=== PATIENT | female | born 1965 | race Two or more races ===

== ENCOUNTER 2019-08-22 14:25 | Emergency (ER) | payer SELFPAY ==
[~2019-08-22] VITALS: Ht 149.9 cm; Wt 68.0 kg
[2019-08-22 14:25] VITALS: BP 121/81
[2019-08-22] MEDS ORDERED: TYLENOL EXTRA500 MG ORAL (15:38)
--- NOTE | 2019-08-22 15:38 | Emergency Room Report ---
History of Present Illness General Chief Complaint: Sore Throat Source: Patient Present Illness HPI 53-year-old female presents to the emergency department complaining of 8 out of 10 severity sore throat x1 week in addition to having contact with another person who had contact with a known positive COVID-19 contact. Patient denies fevers or chills. She denies significant past medical history. She denies smoking history. Patient denies dyspnea, shortness of breath, mucus production , bluish discoloration of the lips. Patient denies chest pain or palpitations. She denies pain with swallowing. Patient denies rhinorrhea or nasal congestion. She denies cough. Patient has no other aggravating or relieving factors at this time. Patient states she has not taken any medications for her symptoms. She states that she did not receive this years flu vaccine. Pt. is inquiring regarding COVID-19 testing. COVID-19 risk:Contact w/high r: No COVID-19 risk:Travel to affect: No Has patient experienced ta: No Allergies: Coded Allergies: No Known Allergies (Unverified , 08/22/19) Patient History Past Medical History: see triage record Past Surgical History: none Pertinent Family History: none Last Menstrual Period: menopausal Now: No Reviewed Nursing Documentation: PMH: Agreed; PSxH: Agreed Nursing Documentation-PMH Past Medical History: No Stated History Review of Systems All Other Systems: negative except mentioned in HPI Physical Exam Vital Signs Date Time Temp Pulse Resp B/P (MAP) Pulse Ox O2 Delivery O2 Flow Rate FiO2 08/22/19 14:25 98.8 92 20 121/81 (94) 96 Room Air Sp02 EP Interpretation: reviewed, normal General Appearance: no apparent distress, alert, GCS 15, non-toxic Head: normocephalic, atraumatic Eyes: bilateral eye normal inspection, bilateral eye PERRL ENT: hearing grossly normal, normal voice, pharyngeal erythema, other - no exudates, no pillar fullness/swelling. Neck: full range of motion Respiratory: lungs clear, normal breath sounds, no wheezing, speaking full sentences Cardiovascular #1: regular rate, rhythm, no edema Musculoskeletal: normal range of motion, gait/station normal, non-tender Neurologic: alert, motor strength/tone normal, oriented x3, sensory intact, responsive, speech normal Psychiatric: judgement/insight normal Skin: normal color, normal inspection Lymphatic: no adenopathy Medical Decision Making PA Attestation Dr. Aleman is my supervising Physician whom patient management has been discussed with. Diagnostic Impression: Primary Impression: Sore throat ER Course 53-year-old female presents to the emergency department complaining of 8 out of 10 severity sore throat x1 week in addition to having contact with another person who had contact with a known positive COVID-19 contact. Patient denies fevers or chills. She denies significant past medical history. She denies smoking history. Patient denies dyspnea, shortness of breath, mucus production , bluish discoloration of the lips. Patient denies chest pain or palpitations. She denies pain with swallowing. Patient denies rhinorrhea or nasal congestion. She denies cough. Patient has no other aggravating or relieving factors at this time. Patient states she has not taken any medications for her symptoms. She states that she did not receive this years flu vaccine. Pt. is inquiring regarding COVID-19 testing. Ddx considered but are not limited to URI, pneumonia, PE, strep pharyngitis, meningitis, COVID-19 Vital signs: Pt. is afebrile, the remaining VS are WNL H&PE are most consistent with mild- viral URI symptoms. - no meningeal signs, oropharynx is not involved, no evidence of bacterial infection at this time. This patient is nontoxic in appearance and in no acute distress. Not demonstrating any signs of respiratory distress. ORDERS: none required at this time, the diagnosis is clinical. The hospital is currently out of COVID-19 testing. This was discussed with this patient that routine testing should be performed through her primary care provider and that the emergency department is to be used for emergency purposes. ED INTERVENTIONS: None required at this time. --PT. EDUCATION: Discussed antibiotic resistance with inappropriate prescribing of antibiotics for viral illnesses. Discussed signs and symptoms to indicate viral illness versus bacterial illness. DISCHARGE: At this time pt. is stable for d/c to home. Will provide printed patient care instructions, and any necessary prescriptions. Care plan and follow up instructions have been discussed with the patient prior to discharge. Last Vital Signs Date Time Temp Pulse Resp B/P (MAP) Pulse Ox O2 Delivery O2 Flow Rate FiO2 08/22/19 14:25 98.8 92 20 121/81 96 Room Air Disposition: HOME, SELF-CARE Condition: Stable Referrals: NOT CHOSEN IPA/,REFERRING (PCP) Patient Instructions: Sore Throat Additional Instructions: DUE TO YOUR EXPOSURE TO THE COVID-19 INFECTION OR DISPLAYING COVID-19 SYMPTOMS: YOU ARE TO SELF-QUARANTINE AT HOME FOR THE NEXT 14 DAYS EVEN IF YOU ARE NOT HAVING ANY SYMPTOMS. *!* QUARANTINE IS TO BE TAKEN SERIOUSLY, ALTHOUGH YOUR SYMPTOMS MAY BE MILD OR RESOLVE IN A FEW DAYS. YOUR ADHERENCE TO SELF-QUARANTINE IS IMPORTANT FOR OTHERS IN THE COMMUNITY WHO MAY COME IN CONTACT WITH SOMETHING YOU TOUCH OR IN CLOSE DISTANCE OF YOU. ------ DO NOT EXPOSE ANOTHER PERSON IN THE COMMUNITY WHOM MAY HAVE A WEAKER IMMUNE SYSTEM THAN YOU, THIS VIRUS CAN CAUSE LIFE-THREATENING COMPLICATIONS ---- - ----- PLEASE NOTIFY ALL CLOSE CONTACTS IN THE LAST 2 WEEKS THAT THEY SHOULD STAY SELF-QUARANTINED INSIDE WELL UNTIL YOU RECEIVE YOUR RESULTS. CONTACT YOUR HEALTHCARE PROVIDER FOR AT HOME TREATMENT AND MONITORING IF YOU BEGIN EXPERIENCING ANY SYMPTOMS. ---- IF YOUR SYMPTOMS ARE VERY SEVERE OR YOU DEVELOP SHORTNESS OF BREATH/ DIFFICULTY BREATHING, FEVERS THAT DON'T RESPOND TO TYLENOL/MOTRIN THEN RETURN TO THE EMERGENCY DEPARTMENT FOR ADMISSION CONSIDERATION. * PLEASE REVIEW PROVIDED COVID-19 SELF QUARANTINE INFORMATION DOCUMENT THAT IS PROVIDED TO YOU * AT THIS PRESENT TIME YOUR VITAL SIGNS ARE STABLE AND YOU ARE STABLE TO BE TREATED AN OUTPATIENT AT HOME. Take medications as directed. Follow up with a Primary Care Provider in 3-5 days, even if your symptoms have resolved. TELEPHONE CONTACT Unless directed to physically show up in person by the Primary Care provider or their staff. --Please review list of primary care clinics, if you do not already have a primary care provider Return sooner to ED if new symptoms occur, or current symptoms become worse. - Please note that this Emergency Department Report was dictated using [employer] technology software, occasionally this can lead to erroneous entry secondary to interpretation by the dictation equipment. Mahogany Bustillos Aug 22, 2019 15:38
[2019-08-22 15:53] VITALS: BP 135/79
== END 2019-08-22 15:53 | disposition home or self-care (01) ==
LOC: EDBD 14:25 → EMR 15:21
DX: Z03.818 Encounter for observation for suspected exposure to other biological agents ruled out (principal); J02.9 Acute pharyngitis, unspecified
CPT/HCPCS: 99281